=== PATIENT | female | born 1975 | race Caucasian/White ===

== ENCOUNTER 2017-04-12 00:05 | Emergency (ER) | payer SELFPAY ==
--- NOTE | 2017-04-12 02:27 | ER Document Report ---
ED General - General Chief Complaint: Flu Symptoms Stated Complaint: FEVER Time Seen by Provider: 04/12/17 02:15 Notes: Patient is a 41 year old female without past medical history, no tobacco use who presents with 1 week of chest tightness with associated cough and sputum production. Symptoms have been constant since onset. Notes that she has also felt generally ill with fatigue and intermittent subjective fever. Multiple sick contacts with same symptoms. She denies recent history of similar symptoms. She has been trying slil-uxo-vjzetyh Mucinex without any relief of her symptoms. Nothing worsens her symptoms. She denies any hemoptysis, shortness of breath, syncope, headache, neck pain or altered mental status. No vomiting or diarrhea. She has not seen her primary care doctor regarding today' s concerns. TRAVEL OUTSIDE OF THE [place] IN LAST 30 DAYS: No - Related Data Allergies/Adverse Reactions: No Known Allergies Allergy (Unverified 11/10/13 21:19) Past Medical History - General Information source: Patient - Social History Smoking Status: Never Smoker Frequency of alcohol use: None Drug Abuse: None Lives with: Spouse/Significant other Family History: Reviewed & Not Pertinent Patient has suicidal ideation: No Patient has homicidal ideation: No Renal/ Medical History: Denies: Hx Peritoneal Dialysis Past Surgical History: Reports: Hx Tubal Ligation - Immunizations Hx Diphtheria, Pertussis, Tetanus Vaccination: Yes Review of Systems - Review of Systems Notes: Constitutional: Positive for fever. HENT: Negative for sore throat. Eyes: Negative for visual changes. Cardiovascular: Negative for chest pain. Respiratory: Positive for cough Gastrointestinal: Negative for abdominal pain, vomiting or diarrhea. Genitourinary: Negative for dysuria. Musculoskeletal: Negative for back pain. Skin: Negative for rash. Neurological: Negative for headaches, weakness or numbness. 10 point ROS negative except as marked above and in HPI. Physical Exam - Vital signs Vitals: Temp Pulse Resp BP Pulse Ox 99.3 F 83 16 131/76 H 96 04/12/17 00:23 04/12/17 00:23 04/12/17 00:23 04/12/17 00:23 04/12/17 00:23 Interpretation: Normal Notes: PHYSICAL EXAMINATION: GENERAL: Well-appearing, well-nourished and in no acute distress. HEAD: Atraumatic, normocephalic. EYES: Pupils equal round and reactive to light, extraocular movements intact, sclera anicteric, conjunctiva are normal. ENT: nares patent, oropharynx clear without exudates. Moist mucous membranes. NECK: Normal range of motion, supple without lymphadenopathy LUNGS: Breath sounds clear to auscultation bilaterally and equal. No wheezes rales or rhonchi. HEART: Regular rate and rhythm without murmurs ABDOMEN: Soft, nontender, normoactive bowel sounds. No guarding, no rebound. No masses appreciated. EXTREMITIES: Normal range of motion, no pitting or edema. No cyanosis. NEUROLOGICAL: No focal neurological deficits. Moves all extremities spontaneously and on command. PSYCH: Normal mood, normal affect. SKIN: Warm, Dry, normal turgor, no rashes or lesions noted. Course - Re-evaluation Re-evalutation: 04/12/17 02:26 Patient presents with a clinical history and exam most consistent with an acute viral bronchitis. Patient is overall well in appearance without tachypnea, hypoxemia, tachycardia, or difficulty with ambulation. Breath sounds are clear bilaterally. No fever. Patient does have additional signs of upper respiratory infection including nasal congestion, sore throat, and sinus pressure. No indication for labs. Chest x-ray is clear without evidence of an acute pneumonia. Will treat with bronchodilators, single dose of dexamethasone , and Tessalon Perles. At this time will discharge with return precautions and follow-up recommendations. Verbal discharge instructions given a the bedside and opportunity for questions given. Medication warnings reviewed. Patient is in agreement with this plan and has verbalized understanding of return precautions and the need for primary care follow-up in the next 24-72 hours. - Vital Signs Vital signs: Temp Pulse Resp BP Pulse Ox 99.3 F 83 16 131/76 H 96 04/12/17 00:23 04/12/17 00:23 04/12/17 00:23 04/12/17 00:23 04/12/17 00:23 - Diagnostic Test Radiology reviewed: Image reviewed, Reports reviewed Radiology results interpreted by me: 04/12/17 03:30 Chest x-ray: No acute infiltrate or pneumothorax - EKG Interpretation by Me Additional EKG results interpreted by me: 04/12/17 03:30 Normal sinus rhythm. Rate 75. No ST elevations or depressions. QTC is 434. Discharge - Discharge Clinical Impression: Bronchitis Condition: Good Disposition: HOME, SELF-CARE Additional Instructions: You were seen for symptoms most consistent with bronchitis. This can take up to 12 weeks to fully resolve. This is generally due to a viral infection. Please follow-up with your primary doctor in the next 2-3 days. Return if you develop worsening cough, vomiting, fever >100.4, pass out, begin coughing blood, or have any other symptoms that are concerning to you. Please use the medications prescribed today as directed. Prescriptions: Benzonatate [Tessalon Perles 100 mg Capsule] 100 mg PO Q8HP PRN #40 capsule PRN Reason:
--- NOTE | 2017-04-12 03:25 | RADIOLOGY REPORT (SQ) ---
EXAM DESCRIPTION: CHEST SINGLE VIEW COMPLETED DATE/TIME: 04/12/2017 3:17 am REASON FOR STUDY: Shortness of breath, cough COMPARISON: None. EXAM PARAMETERS: NUMBER OF VIEWS: One view. TECHNIQUE: Single frontal radiographic view of the chest acquired. RADIATION DOSE: NA LIMITATIONS: None. FINDINGS: LUNGS AND PLEURA: No consolidation, pneumothorax or pleural effusion. MEDIASTINUM AND HILAR STRUCTURES: No masses. Contour normal. HEART AND VASCULAR STRUCTURES: Heart normal in size. Normal vasculature. BONES: There is thoracic scoliosis. HARDWARE: None in the chest. IMPRESSION: No acute radiographic finding in the chest. TECHNICAL DOCUMENTATION: JOB ID: [id number]
[2017-04-12] MEDS ORDERED: DEXAMETHASONE 4 MG TABLET PO ONE (03:28)
[2017-04-12] MEDS ORDERED: BENZONATATE 100 MG CAPSULE PO ONE (03:29)
[2017-04-12] MEDS ORDERED: ALBUTEROL SULFATE HFA (90 MCG/PUFF) 8 GM MDI (1 MDI/ER DISP) IH PRN (03:29)
[2017-04-12 04:32] VITALS: BP 124/74
--- NOTE | 2017-04-12 10:40 | EKG REPORT ---
SEVERITY:- NORMAL ECG - SINUS RHYTHM : Confirmed by: Kalani Mac MD 12-Apr-2017 10:39:32
== END 2017-04-12 04:32 | disposition home or self-care (01) ==
LOC: ER 00:05
DX: J40 Bronchitis, not specified as acute or chronic (principal); R50.9 Fever, unspecified; R07.9 Chest pain, unspecified; R05 Cough; R53.83 Other fatigue
CPT/HCPCS: 93005; 99283; 71010; 93010; J3490

== ENCOUNTER 2018-12-29 05:37 | Day surgery (SDC) | payer OTHER ==
[2018-12-22 10:05] LABS: APPEARANCE,URINE SLIGHTLY-CLOUDY; BILIRUBIN,URINE NEGATIVE (NEGATIVE); COLOR,URINE YELLOW; GLUCOSE, URINE NEGATIVE (NEGATIVE); KETONES,URINE NEGATIVE (NEGATIVE); LEUKOCYTE ESTERASE,URINE NEGATIVE (NEGATIVE); NITRITE,URINE NEGATIVE (NEGATIVE); PROTEIN,URINE NEGATIVE (NEGATIVE); URINE SPECIFIC GRAVITY 1.015; UROBILINOGEN,URINE NEGATIVE mg/dL (<2.0)
[2018-12-22 10:19] LABS: HEMATOCRIT 38.1 % (36.0-47.0); MEAN CORPUSCULAR HEMOGLOBIN 27.8 pg (27.0-33.4); MEAN CORPUSCULAR VOLUME 82 fl (80-97); RED BLOOD COUNT 4.66 10^6/uL (3.72-5.28); RED CELL DISTRIBUTION WIDTH 14.7 % (11.5-14.0); WHITE BLOOD COUNT 6.2 10^3/uL (4.0-10.5)
[2018-12-22 10:31] LABS: ANION GAP 9 (5-19); BLOOD UREA NITROGEN 10 mg/dL (7-20); CALCIUM 9.1 mg/dL (8.4-10.2); CARBON DIOXIDE 27 mmol/L (22-30); CHLORIDE 105 mmol/L (98-107); GLUCOSE 85 mg/dL (75-110); POTASSIUM 4.3 mmol/L (3.6-5.0)
[2018-12-22 10:50] LABS: PLATELET COUNT 244 10^3/uL (150-450)
[~2018-12-29 05:37] MED LIST: CEFAZOLIN 1 GM/D5W RTU 1 GM/50 ML RTUPB IV ONE; CEFAZOLIN 1 GM/D5W RTU 1 GM/50 ML RTUPB IV PRN; LACTATED RINGERS 1000 ML IV PRN; LIDOCAINE 0.5% INJ-PF (5 MG/ML) 50 ML SDV SUBCUT PRN
[2018-12-29] MEDS ORDERED: ONDANSETRON HCL INJ/PF 4 MG/2 ML SDV ONE (06:57)
[2018-12-29] MEDS ORDERED: LIDOCAINE 2% INJ-PF (20 MG/ML) 10 ML AMPUL ONE (06:57)
[2018-12-29] MEDS ORDERED: MIDAZOLAM 2 MG/2 ML INJ ONE (06:57)
[2018-12-29] MEDS ORDERED: PROPOFOL INJ 200 MG/20 ML VIAL IV ONE (06:57)
[2018-12-29] MEDS ORDERED: FENTANYL CITRATE INJ/PF 100 MCG/2 ML AMPUL ONE (06:57)
[2018-12-29] MEDS ORDERED: DEXAMETHASONE SOD PHOSPHATE INJ 4 MG/1 ML VIAL ONE (06:57)
[2018-12-29] MEDS ORDERED: SCOPOLAMINE HYDROBROMIDE 1.5 MG PATCH.TD72 ONE (07:07)
[2018-12-29] MEDS ORDERED: LIDOCAINE 1% INJ-PF (10 MG/ML) 30 ML SDV ONE (07:24)
[2018-12-29] MEDS ORDERED: KETOROLAC TROMETHAMINE INJ/PF 30 MG/1 ML SDV ONE (08:08)
--- NOTE | 2018-12-29 08:10 | OPERATIVE REPORT E ---
Operative Report NAME: REBEKA LANDEROS : 1975 AGE: 43Y DATE OF SURGERY: 12/29/2018 ROOM: PREOPERATIVE DIAGNOSIS: Menorrhagia. POSTOPERATIVE DIAGNOSIS: Menorrhagia. PROCEDURE: Hysteroscopy, Novasure ablation. SURGEON: ADRIAN RENNER M.D. COMPLICATIONS: None. ANESTHESIA: LMAC, paracervical block. FINDINGS: Normal endometrial cavity. EUA demonstrated no adnexal masses. Normal cervix was noted. INDICATIONS FOR PROCEDURE: The patient has profound abnormal uterine bleeding unresponsive to usual outpatient management. Usual risks of bleeding, infection, anesthesia, and damage to organs and tissues have been discussed and the patient understood. She understands the possibility of recurrent bleeding and no guarantees were warranted regarding amenorrhea have been made with the patient. DESCRIPTION OF PROCEDURE: The patient was taken to the operating room and placed in the modified lithotomy position. After adequate anesthesia was ascertained, prepped and draped in the usual manner for a hysteroscopy. After surgical timeout performed, EUA performed, bladder was left undrained. Cervix was slowly methodically dilated to admit an operative hysteroscope. Uterine measurements were taken 5.5 cm length, 4.5 cm width was noted. Burn ensued after insertion of the Novasure device and uterine integrity confirmed for a minute and 30 seconds. At completion of the procedure, all instruments were removed. Bleeding was nil. The patient was taken to recovery room in stable condition. ADDENDUM: Rehysteroscopy post burn demonstrated an intact uterus and good burn throughout. DICTATING PHYSICIAN: ADRIAN RENNER M.D. [id number] PHY#: [id number] ID: [id number] JOB#: [id number] ACCT: [id number] cc:ADRIAN RENNER M.D. >
[2018-12-29] MEDS ORDERED: MORPHINE INJ 4 MG DOSE (EDIT ROUTE) INJ PRN (08:30)
[2018-12-29] MEDS ORDERED: OXYCODONE-ACETAMINOPHEN 5-325 MG TABLET PO PRN (08:30)
[2018-12-29] MEDS ORDERED: PROMETHAZINE HCL INJ 25 MG/1 ML VIAL IM PRN (08:30)
[2018-12-29 10:02] VITALS: BP 139/89
[2018-12-29] MEDS ORDERED: IBUPROFEN 800 MG TABLET PO SCH (14:00)
== END 2018-12-29 09:35 | disposition home or self-care (01) ==
LOC: OROUT 05:37
PROVIDERS: ATTEND Specialist
DX: N92.0 Excessive and frequent menstruation with regular cycle (principal); D64.9 Anemia, unspecified
CPT/HCPCS: 86900; 86901; 36415; 86850; 85027; 81025; 80048; 81001; 88305 ×2; 58563; J2250; J0690; J1100; J3010; J3490 ×2; J1885; J2405; J2704; 952